=== PATIENT | male | born 1930 | race Caucasian/White ===

== ENCOUNTER 2016-07-15 09:18 | Emergency (ER) | payer OTHER | END 2016-07-15 11:55 | disposition home or self-care (01) | LOC: ER 09:18 | DX: S22.32XA Fracture of one rib, left side, initial encounter for closed fracture (principal); I11.0 Hypertensive heart disease with heart failure; I50.9 Heart failure, unspecified; Z95.0 Presence of cardiac pacemaker; Z98.61 Coronary angioplasty status; Z79.899 Other long term (current) drug therapy; Z79.82 Long term (current) use of aspirin; Z88.8 Allergy status to other drugs, medicaments and biological substances; Z88.0 Allergy status to penicillin; W18.2XXA Fall in (into) shower or empty bathtub, initial encounter | CPT/HCPCS: 36415 ==